=== PATIENT | female | born 1985 | race Caucasian/White ===

== ENCOUNTER 2022-04-16 20:33 | Emergency (ER) | payer BC ==
[~2022-04-16] VITALS: Ht 157.5 cm; Wt 49.9 kg
[2022-04-16 20:50] VITALS: BP 137/82
[2022-04-16] MEDS ORDERED: BACI/NEOM/POLY B OINT PKT 1 UDPKT PACKET TP ONE (21:00)
[2022-04-16] MEDS ORDERED: AMOX-430 PO (21:02)
[2022-04-16] MEDS ORDERED: BACI/NEOM/POLY B OINT PKT 1 UDPKT PACKET ONE (21:16)
--- NOTE | 2022-04-16 21:19 | NUR ---
Patient discharged to home in stable condition. Written and verbal after care instructions given. Patient verbalizes understanding of instruction. Pt ambulatory with a steady gait
== END 2022-04-16 21:21 | disposition home or self-care (01) ==
LOC: ER 20:41
DX: S01.21XA Laceration without foreign body of nose, initial encounter (principal); W54.0XXA Bitten by dog, initial encounter; Y93.89 Activity, other specified; Y92.89 Other specified places as the place of occurrence of the external cause; Y99.8 Other external cause status